=== PATIENT | female | born 1960 | race Caucasian/White ===

== ENCOUNTER 2021-07-09 23:38 | Emergency (ER) | payer OTHER, SELFPAY ==
--- NOTE | 2021-07-09 23:30 | RT.EKG_ITS ---
APPROVED REPORT Exam: Resting ECG Reason for Exam: chest pain Patient Location: E HR:75 bpm ECG Measurements Heart Rate 75 AXIS AR 151 P 60 QRSd 95 QRS 10 QT 401 T 36 QTc 447 Conclusion Sinus rhythm...normal P axis, V-rate 60- 99 Nonspecific T abnormalities, inferior leads...T <-0.10mV, II III aVF Normal [place] I have reviewed and interpreted ECG and agree with software generated interpretation.
[2021-07-09 23:43] VITALS: BP 111/75; PULSE 73; RESP 18; TEMP 36.4; O2SAT 97
--- NOTE | 2021-07-10 | DI.RAD_ITS ---
Exam(s) XR CHEST 2V PA LATERAL EXAM: XR CHEST 2V PA LATERAL CLINICAL HISTORY: chest pain. TECHNIQUE: 2D digital imaging was performed. COMPARISON: No exams were available for comparison FINDINGS: Heart size is normal. The mediastinum is not widened. Lungs are clear. No infiltrates nor pleural effusions. IMPRESSION: No acute pulmonary findings. DATA REPOSITORY: RADIATION DOSE DELIVERED:
--- NOTE | 2021-07-10 00:10 | ED.GENADUL_ITS ---
Discharge Plan Disposition Patient Disposition: HOME Condition: Good Discharge Details Clinical Impression: Chest pain [facility] Provider: John Lan Home Meds and New Rx's Prescriptions: No Action No Known Home Meds RF: 0 Discharge Instructions Instructions: Chest Pain (ED) Additional Instructions: Please contact your primary care physician for follow-up and consideration of outpatient stress testing to complete tonight's work-up. No EKG shows nonspecific changes with normal labs and normal chest x-ray. Return to ED for new or worsening pain, persistent shortness of breath, syncope, other concerns. Discharge Data Discharge Date/Time-TO BE ENTERED AT DEPARTURE: 07/10/21 03:35 Medical Decision Making Patient presenting to the ED with episode of chest pain that she described as sharp and brief maybe a couple of minutes. She is anxious and concerned because recently saw primary care physician who had an event monitor placed based on EKG findings on her annual visit. She also has a sister of a heart attack at about the age patient is currently. Her EKG is sinus rhythm with nonspecific ST changes but nothing acute.. No old to compare to. She is asymptomatic now. She has no risk factors other than family history. She is otherwise healthy and not on medications. IV established and laboratory studies sent including D- dimer. Chest x-ray obtained. Laboratory studies are unremarkable. D-dimer is negative. First troponin is negative. Chest x-ray with no acute pathology. Patient without recurrent symptoms. Repeat EKG and troponin at 3 hours remain unchanged. Patient is low risk by HEART score as well as EDACS. Discussed with patient at length and referred to primary care for follow-up and consideration of outpatient stress testing to complete ED work-up. Return to ED for recurrent symptoms or concerns. Lab Data Lab results reviewed: Yes I reviewed the patient's lab results. ECG Data Attestation: I personally reviewed and interpreted this ECG (s) as follows: Prior ECG tracings: not available for review Interpretation: see EKG HPI General Mode of arrival: ambulatory . Date/Time Provider Initiated Documentation: 07/10/21 00:10 . Limitations to Documentation: no limitations . Information obtained by: patient and RN notes reviewed . HPI Narrative: Patient presents to ED with complaint of chest pain. Patient seen by primary care last week for her annual physical. She was told that her EKG had some abnormalities that they wanted to investigate. An event monitor has been placed. This evening she developed chest pain described as sharp and radiating toward the back. Was relatively brief only a few minutes but scatter as she reports having a sister from a heart attack at about her age. Patient had some shortness of breath but cannot decide whether it was related to anxiety or not. She had no syncope, dizziness, diaphoresis, nausea or vomiting. She did take a baby aspirin and then came to the ED. She is currently asymptomatic. Related Data Home Medications Medication Instructions Recorded Confirmed Unknown [No Known Home Meds] 07/10/21 07/10/21 Allergies Allergy/AdvReac Type Severity Reaction Status Date / Time No Known Allergies Allergy Unverified 07/10/21 01:21 General Stated Complaint: Chest Pain LOS: 2 Review of Systems Narrative: As documented in HPI otherwise negative as below. Const: no fever, chills, weakness Resp: no cough, pleuritic pain CV: no diaphoresis, edema, syncope GI: no abdominal pain, nausea, vomiting, diarrhea Neuro: no headache, numbness, focal weakness, confusion PFSH All Active Problems (Updated 07/10/21 @ 03:15 by John Lan MD) Chest pain (Acute) Medical History (Updated 07/10/21 @ 03:15 by John Lan MD) No significant past medical history Social History (Updated 07/10/21 @ 00:11 by John Lan MD) Smoking/Tobacco Use Status: Never Smoking risk assessment performed?: Yes Substance use type: does not use Do you feel safe at home: Yes Do you feel safe in your relationship?: Yes Exam Narrative Exam Narrative: Const: WDWN female in NAD. HEENT: NC/AT. Normal facial exam. Eyes: Normal conjunctiva and sclera. Neck: Supple. Trachea midline. Lungs: Normal respiratory effort. Lungs are clear. Cor: RRR without murmur/gallop. Good radial pulses. GI: Soft. NT/ND. No guarding or rebound. Neuro: A+O x 3. Normal speech, mentation, gait. Cranial nerves II - XII grossly intact. No gross motor or sensory deficit. Ext: No C/C/E. Skin: Warm and dry without rash. Course Vital Signs Vital signs: Vital Signs Temperature 97.5 F L 07/09/21 23:43 Pulse 73 07/09/21 23:43 Respiratory Rate 18 07/09/21 23:43 Blood Pressure 111/75 07/09/21 23:43 Pulse Oximetry 97 07/09/21 23:43 Temperature 97.5 F L 07/09/21 23:43 Temperature Source Tympanic 07/09/21 23:43 Pulse 73 07/09/21 23:43 Respiratory Rate 18 07/09/21 23:43 Blood Pressure 111/75 07/09/21 23:43 Blood Pressure Position Supine 07/09/21 23:43 Pulse Oximetry 97 07/09/21 23:43 Oxygen Delivery Method Room Air 07/09/21 23:43 Oxygen Flow Rate 0 07/09/21 23:43 Pain Level 0 07/09/21 23:43
[2021-07-10 00:23] LABS: Abs Immature Grans 0.01 10^3/uL (0.0-0.06); Absolute Basophil Count 0.04 10^3/uL (0.0-0.2); Absolute Lymphocyte Count 1.56 10^3/uL (1.2-3.4); Absolute Monocyte Count 0.53 10^3/uL (0.1-0.8); Absolute Neutrophil Count 3.36 10^3/uL (1.2-6.7); Basophils % 0.7; Eosinophils % 1.8; HCT 34.9 % (36.0-46.0); HGB 11.7 g/dL (11.2-15.7); Immature Grans % 0.2; Lymphocytes % 27.9; MCH 29.9 pg (27.0-33.0); MCHC 33.5 % (32.0-36.0); MCV 89.3 fL (80-95); MPV 10.1 fL (8.0-11.0); Monocytes % 9.5; Neutrophils % 59.9; Nucleated RBC 0 %; Platelet Count 210 10^3/uL (130-400); RBC 3.91 10^6/uL (3.93-5.22); RDW 12.3 % (11.7-14.6); RDW-SD 39.7 fL
[2021-07-10 00:36] LABS: ALT 16 U/L (14-59); AST 11 U/L (15-37); Albumin 3.7 g/dL (3.4-5.0); Alkaline Phosphatase 70 U/L (46-116); Anion Gap 7.9 mmol/L (3-11); BUN 20 mg/dL (7-18); Bilirubin, Total 0.3 mg/dL (0.2-1.0); CO2 28.1 mmol/L (21.0-32.0); Calcium 8.6 mg/dL (8.5-10.1); Chloride 107 mmol/L (98-107); Estimated GFR 56.75 (mL/min/1.73m2); Glucose 127 mg/dL (74-106); Magnesium 2.2 mg/dL (1.8-2.4); Potassium 3.5 mmol/L (3.5-5.1); Sodium 143 mmol/L (136-145); Total Protein 6.8 g/dL (6.4-8.2)
[2021-07-10 00:37] LABS: Troponin I < 0.05 ng/mL (<0.06)
[2021-07-10 01:09] LABS: D-Dimer 224 ng/mlFEU (<500)
[2021-07-10] MEDS: Aspirin 81 MG CHEW 243 MG CH (01:58)
--- NOTE | 2021-07-10 02:04 | DI.VRAD_ITS ---
PROCEDURE INFORMATION: Exam: XR Chest Exam date and time: 07/10/2021 12:13 AM Age: 61 years old Clinical indication: Other: Cp TECHNIQUE: Imaging protocol: XR of the chest. Views: 2 views. COMPARISON: No relevant prior studies available. FINDINGS: Lungs: Unremarkable. No consolidation. Pleural spaces: Unremarkable. No pleural effusion. No pneumothorax. Heart/Mediastinum: Unremarkable. No cardiomegaly. Bones/joints: Unremarkable. IMPRESSION: No acute findings. Dictated and Authenticated by: Noel Jane MD. Ordering:KAROL Lopez MD
--- NOTE | 2021-07-10 02:30 | RT.EKG_ITS ---
APPROVED REPORT Exam: Resting ECG Reason for Exam: repeat Patient Location: E HR:57 bpm ECG Measurements Heart Rate 57 AXIS MS 150 P 52 QRSd 103 QRS 37 QT 451 T 30 QTc 439 Conclusion Sinus bradycardia...rate< 60 Low voltage, precordial leads...precordial leads <1.0mV Nonspecific T abnormalities, anterior leads...T <-0.10mV, V2-V4 There are no significant changes compared to prior EKG performed on 07/09/2021 at 23:48.
[2021-07-10 02:49] VITALS: BP 118/74; PULSE 60; RESP 18; O2SAT 97
[2021-07-10 03:10] LABS: Troponin I < 0.05 ng/mL (<0.06)
== END 2021-07-10 03:35 | disposition home or self-care (01) ==
PROVIDERS: Emergency Provider Emergency Medicine
DX: R07.9 Chest pain, unspecified (principal)
CPT/HCPCS: 80053; 93005; 99284; 71046; 83735; 84484; 85025; 85379; 93010; 99283

== ENCOUNTER 2021-09-28 08:30 | Emergency (ER) | payer OTHER, SELFPAY ==
[2021-09-28] VITALS (42 sets, daily range): BP systolic 95–138; BP diastolic 48–104; PULSE 56–81; RESP 11–22; TEMP 36.2–36.4; O2SAT 95–99
--- NOTE | 2021-09-28 08:30 | RT.EKG_ITS ---
APPROVED REPORT Exam: Resting ECG Reason for Exam: cp/sob Patient Location: E HR:81 bpm ECG Measurements Heart Rate 81 AXIS NM 148 P 49 QRSd 91 QRS -6 QT 392 T 7 QTc 454 Conclusion Sinus rhythm...normal P axis, V-rate 60- 99 Low voltage, precordial leads...precordial leads <1.0mV Nonspecific T abnrm, anterolateral leads...T <-0.10mV, I aVL V2-V6. Sinus. Artifact V5-6. No STEMI. I have reviewed and interpreted ECG and agree with software generated interpretation.
--- OUTSIDE RECORDS SUMMARY | 2021-09-28 08:35 | XMS_ITS ---
:1960 Author Organization [facility] Address [address] [place], [place] [id number] Care Team Providers Name Role Phone JAVIER JIMENEZ Unavailable Unavailable PROBLEMS Unknown Problems ALLERGIES No Information ENCOUNTERS Encounter Location Date Diagnosis [facility] [address] Jul, Other melanin [facility] [place], [place] [id number] hyper pigmentation L81.4 ; Associates Melanocytic nevi of trunk D22.5 ; Other se borrheic keratosis L82.1 and Inflamed seborrheic kerat osis L82.0 IMMUNIZATIONS No Known Immunizations SOCIAL HISTORY Never Assessed REASON FOR REFERRAL FUNCTIONAL STATUS PLAN OF CARE VITAL SIGNS MEDICATIONS Unknown Medications PROCEDURES No Known procedures RESULTS No Results REASON FOR VISIT screening for malignant neoplasm of skin Insurance Providers [facility] Member Patient Patient Patient Patient Patient Subscriber Subscriber Subscriber Group Insurance Plan Plan Plan Plan ID Relationship Address Phone Name Date of ID Name Date of No Type Insurance Insurance Insurance Coverage to Subscriber Address Phone Name Dates [facility] [phone] [facility] H[facility] self Jose A [id number] [place] [id number]
--- OUTSIDE RECORDS SUMMARY | 2021-09-28 08:35 | XMS_ITS ---
:1960 Author Care Team Providers Name Role Phone Rocio Rosales Primary Care Provider Unavailable Allergies Code Code System Name Reaction Severity Status Onset No Allergy ? ? Active 8 Information Available Medications Name Status Start Date Stop Date ? ? amoxicillin 500 mg capsule Completed ? 06/28 amoxicillin 500 mg tablet Completed ? 2020 TAKE 4 TABLETS ONE HOUR PRIOR TO APPOINTMENT indomethacin 50 mg capsule Completed ? 05/13 Problems Name Status Onset Date Source ? Back Pain without Radiation NOS Active 05/17/1998 History Migraine Active 12/14/1998 History Allergic Disposition Active 12/14/1998 History Herpes Zoster Active 08/20/2017 History Procedures Date Name Performed by ? 05/13/2020 MAMMO, Screening, Digital, Bilateral [facility] (Imaging Scheduling) [address] [place] [address] [phone] (Work Place) 05/12/2019 Mammogram, Screening Information not ofelia ilable 06/28/2021 MAMMO, Screening, Digital, Bilateral 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 08/02/2021 CBC W/ Normal White 4.3 3.8-10.8 Final Ques t Auto Blood thousand/uL thousand/uL Diagnostics- Diff Cell [facility] h Count Lab: [address] [facility] [employer] ? ? Normal Red 4.44 3.80-5.10 Final [facility] Blood million/uL million/uL Di agnostics- Cell [facility] h Count Lab: [address] [facility] [employer] ? ? Normal Hemoglob 13.5 g/dL 11.7-15.5 Final Q uest in g/dL [facility] [address] [facility] ? ? Normal Hematocr 39.8 % 35.0-45.0 % Final Qu est it Diagnostic s- [facility] h Lab: [address] [facility] [employer] ? ? Normal Mcv 89.6 fL 80.0-100.0 Final [facility]L [facility] [address] [facility] [employer] ? ? Normal Mch 30.4 pg 27.0-33.[address] [facility] [address] [facility] ? ? Normal Mchc 33.9 g/dL 32.0-36.0 Final Ques t g/dL Diagnostic s- [facility] h Lab: [address] [facility] ? ? Normal Rdw 12.7 % 11.0-15.0 % [facility] [address] [facility] ? ? Normal Platelet 241 140-400 Final [facility] Count thousand/uL thousand/uL [facility]- [facility] Lab: [address] [facility] ? ? Normal Mpv 10.7 fL 7.5-12.5 fL Final Ques t Diagnostic [facility]- [facility] [address] [facility] ? ? Normal Absolute 2425 [phone] Final Ques t Neutrophi cells/uL cells/uL Kanika gnostics- [facility]: [address] [facility] ? ? Normal Absolute [phone] Final [facility] Lymphocyt cells/uL cells/uL Kanika gnostics- es [facility] Lab: [address] [facility] [employer] ? ? Normal Absolute 486 cells/uL 200-950 Final [facility] Monocytes cells/uL Diagn [facility]- [facility] Lab: [address] [facility] [employer] ? ? Normal Absolute 60 cells/uL 15-500 Final Qu est Eosinophi cells/uL Diagn [facility]- [facility] h Lab: [address] [facility] [employer] ? ? Normal Absolute 39 cells/uL 0-200 Final Qu est Basophils cells/uL Diagn [facility] Lab: [address] [facility] [employer] ? ? Normal Neutroph 56.4 % ? Final [facility] ils Diagnostic s- [facility] Lab: [address] [facility] ? ? Normal Lymphocy 30.0 % ? Final [facility] obie Diagnostic s- [facility] h Lab: [address] [facility] ? ? Normal Monocyte 11.3 % ? Final [facility] s Diagnostic s- [facility] Lab: [address] [facility] ? ? Normal Eosinoph 1.4 % ? Final [facility] ils Diagnostic s- [facility] Lab: [address] [facility] ? ? Normal Basophil 0.9 % ? Final [facility] Lab: [address] [facility] [employer] 08/02/2021 Rf Normal Rheumato <14 IU/mL <14 IU/mL Lori l [facility] (Rheumat id Factor Diagn [facility]- oid [facility] Factor), Lab: [address] Serum [facility] [employer] 08/02/2021 Sjogren Normal Sjogren' <1.0 neg ai <1.0 neg ai Final [facility] Antibody s Diagnost ics- Panel, Antibody [facility] Serum (ss-A) Lab: [address] [facility] ? ? Normal Sjogren' <1.0 neg ai <1.0 neg ai Lori l [facility] s Diagnostic s- Antibody [facility] (ss-B) Lab: [address] [facility] 08/02/2021 Ccp Normal Cyclic <16 units ? Final Qu est (Cyclic Citrullin Diagno stics- Citrulli ated [facility] nated Peptide Lab: 200 Peptide) (Ccp) Ab [facility], Igg, (IgG) [facility] Serum 08/02/2021 GEO Normal anachoic negative negative Final [facility] (Antinuc e(R) Diagnost ics- lear Screen [facility] Antibodi Lab: 200 es) [facility], Screen, [facility] Serum 07/27/2021 Lymphoma ? %Cd3+Cd4 55.6 % ? Final Q uest Panel, + Diagnostic s- Flow [facility] Cytometr Lab: [address] y, [place] [address], Unspecif [facility] ied Specimen ? ? ? %Cd3+Cd8 23.1 % ? Final [facility] + Diagnostic s- [facility] Lab: [address] [facility] ? ? ? %Cd3-Cd7 8.3 % ? Final [facility] + Diagnostic s- [facility] Lab: [address] [facility] ? ? ? %Cd19+Cd 13.8 % ? Final [facility] 20+ Diagnostic s- [facility] Lab: [address] [facility] ? ? ? Patholog see comments ? Final Q uest ist Diagnostic s- Interpret [facility] ou ation Lab: [address] [facility] ? ? ? Asr see comments ? Final Ques t Diagnostic s- [facility] Lab: [address] [facility] ? ? ? Flow see comments ? Final Ques t Cytometry Diagnos tics- Markers [facility] Lab: [address] [facility] ? ? ? Number 18 ? Final [facility] of Diagnostic s- Billable [facility] Markers Lab: [address] [facility] ? ? ? Clinical NG ? Final Quest History Diagnosti cs- [facility] Lab: [address] [facility] ? ? ? Specimen venous, ? Final [facility] Source: peripheral Diagn ostics- [facility] Lab: [address] [facility] ? ? ? Specimen blood ? Final Quest Type: Diagnostic s- [facility] Lab: [address] [facility] ? ? ? Correcti n/a ? Final [facility] on Diagnostic s- History [facility] Lab: [address] [facility] 07/27/2021 Retic Normal Reticulo 1.2 % ? Final Que st Count, cyte Diagnostic s- Blood Count, [facility] Automated Lab: 20 0 [facility] ? ? Normal Reticulo [phone] Final Qu est cyte, cells/uL cells/uL Diagno stics- Absolute [facility] Lab: [address] [facility] 07/27/2021 Erythroc Normal Sed Rate 2 mm/h < or = 30 Final [facility] yte by mm/h Diagnostic s- Sediment Modified [facility] Lab: 20 0 Rate by n [facility] en Method 07/27/2021 Patholog ? Patholog ? ? Final Q uest y ist Diagnostic s- Review, Review of [place] rough Smear Periphera Lab: 20 0 l Smear [facility] 07/27/2021 CBC W/ ? White ? ? Incomplet Que st Auto Blood e Diagnostic [facility]- [facility]: [address] [facility] ? ? ? Red ? ? Incomplet [facility] Blood e Diagnostic s- Cell [facility] Lab: [address] [facility] ? ? ? Hemoglob ? ? Incomplet Ques t in e Diagnostic s- [place] Lab: [address] [facility] ? ? ? Hematocr ? ? Incomplet Ques t it e Diagnostic s- [place] Lab: [address] [facility] ? ? ? Mcv ? ? Incomplet [facility] e Diagnostic s- [place] Lab: [address] [facility] ? ? ? Mch ? ? Incomplet [facility] e Diagnostic s- [place] Lab: [address] [facility] ? ? ? Mchc ? ? Incomplet [facility] e Diagnostic s- [place] Lab: [address] [facility] ? ? ? Rdw ? ? Incomplet [facility] e Diagnostic s- [place] Lab: [address] [facility] ? ? ? Platelet ? ? Incomplet Ques t Count e [facility]- [facility] Lab[facility] [address] [facility] ? ? ? Mpv ? ? Incomplet [facility] e Diagnostic [facility]- [facility] Lab[facility] [address] [facility] ? ? ? Absolute ? ? Incomplet Ques t Neutrophi e Diagnos tics- ls [facility] h Lab: [address] [facility] ? ? ? Absolute ? ? Incomplet Ques t Band e Diagnostic s- Neutrophi [place] [facility] Lab: [address] [facility] ? ? ? Absolute ? ? Incomplet Ques t Metamyelo e Diagnos tics- cytes [facility] h Lab: [address] [facility] ? ? ? Absolute ? ? Incomplet Ques t Myelocyte e Diagnos tics- s [facility] Lab: [address] [facility] ? ? ? Absolute ? ? Incomplet Ques t Promyeloc e Diagnos tics- ytes [facility] Lab: [address] [facility] ? ? ? Absolute ? ? Incomplet Ques t Lymphocyt e Diagnos tics- es [facility] h Lab: [address] [facility] ? ? ? Absolute ? ? Incomplet Ques t Monocytes e Diagnos tics- [facility] h Lab: [address] [facility] ? ? ? Absolute ? ? Incomplet Ques t Eosinophi e Diagnos tics- ls [facility] h Lab: [address] [facility] ? ? ? Absolute ? ? Incomplet Ques t Basophils e Diagnos tics- [facility] h Lab: [address] [facility] ? ? ? Absolute ? ? Incomplet Ques t Blasts e Diagnostic s- [facility] h Lab: [address] [facility] ? ? ? Absolute ? ? Incomplet Ques t Nucleated e Diagnos tics- RBC [facility] h Lab: [address] [facility] ? ? ? Neutroph ? ? Incomplet Ques t ils e Diagnostic s- [facility] h Lab: [address] [facility] ? ? ? Band ? ? Incomplet Quest Neutrophi e Diagnos tics- ls [facility] h Lab: [address] [facility] ? ? ? Metamyel ? ? Incomplet Ques t ocytes e Diagnostic s- [facility] Lab[facility] [address] [facility] ? ? ? Myelocyt ? ? Incomplet Ques t es e Diagnostic s- [facility] h Lab: [address] [facility] ? ? ? Promyelo ? ? Incomplet Ques t cytes e Diagnostic s- [facility] h Lab: [address] [facility] ? ? ? Lymphocy ? ? Incomplet Ques t obie e Diagnostic s- [facility] h Lab: [address] [facility] ? ? ? Reactive ? ? Incomplet Ques t Lymphocyt e Diagnos tics- es [facility] Lab: [address] [facility] ? ? ? Monocyte ? ? Incomplet Ques t s e Diagnostic s- [facility] Lab: [address] [facility] ? ? ? Eosinoph ? ? Incomplet Ques t ils e Diagnostic s- [facility] Lab: [address] [facility] ? ? ? Basophil ? ? Incomplet Ques t s e Diagnostic s- [facility] Lab: [address] [facility] ? ? ? Blasts ? ? Incomplet Quest e Diagnostic s- [facility] Lab: [address] [facility] ? ? ? Nucleate ? ? Incomplet Ques t d RBC e Diagnostic s- [facility] Lab: [address] [facility] ? ? ? Comment( ? ? Incomplet Ques t s) e Diagnostic s- [facility] Lab: [address] [facility] 07/27/2021 GEO ABNORMAL GEO positive negative Final [facility] (Antinuc Screen, Diagnos tics- lear Ifa [facility] Antibodi Lab: 200 es) [place] , [facility] Ifa, Serum ? ? High GEO 1:320 titer ? Final [facility] Titer Diagnostic s- [facility] Lab: [address] [facility] ? ? ABNORMAL GEO nuclear, ? Final Quest Pattern dense fine Diagn ostics- speckled [facility] Lab: [address] [facility] [employer] 07/27/2021 C-reacti Normal C-reacti 1.8 mg/L <8.0 mg/L Fin al Quest ve ve Diagnostic s- Protein, Protein [facility] Lab: 200 tive [facility] [employer] [facility] [employer] 07/27/2021 Ramu- Normal Ebv <36.00 U/mL ? Final Quest moore Viral Diagnostic s- Virus Capsid Ag [facility] (Ebv) (Vca) Ab Lab: 200 IgG + (IgM) [facility], IgM [facility] Panel, Serum ? ? High Ebv >750.00 U/mL ? Final Ques t Viral Diagnostic s- Capsid Ag [facility] (Vca) Ab Lab: 200 (IgG) [facility] [employer] [facility] [employer] ? ? High Ebv 375.00 U/mL ? Final [facility] Nuclear Diagnosti cs- Ag (Ebna) [facility] Ab (IgG) Lab: [address] [facility] ? ? ? Interpre ? ? Final Quest tation: Diagnosti cs- [facility] Lab: [address] [facility] [employer] 07/27/2021 Vitamin Normal Vitamin 415 pg/mL 200-1100 Final Quest B12 + B12 pg/mL Diagnostic s- Folate, [facility] Serum or Lab: 200 Blood [facility] ? ? Normal Folate, 8.0 NG/mL ? Final [facility] Serum [facility] Lab: [address] [facility] [employer] 07/27/2021 CBC W/ Normal White 4.0 3.8-10.8 Final Ques t Auto Blood thousand/uL thousand/uL Diagnostics- Diff Cell [facility] Count Lab: [address] [facility] ? ? Normal Red 4.39 3.80-5.10 Final [facility] Blood million/uL million/uL Di agnostics- Cell [facility] Count Lab: [address] [facility] ? ? Normal Hemoglob 13.0 g/dL 11.7-15.5 Final Q uest in g/dL [facility] Lab[facility] [address] [facility] ? ? Normal Hematocr 39.0 % 35.0-45.0 % Final Qu est it Diagnostic s- [facility] Lab: [address] [facility] ? ? Normal Mcv 88.8 fL 80.0-100.0 Final [facility] fL Diagnostic [facility] h Lab: [address] [facility] [employer] ? ? Normal Mch 29.6 pg 27.0-33.[address] Diagnostic [facility] h Lab: [address] [facility] ? ? Normal Mchc 33.3 g/dL 32.0-36.0 Final Ques t g/dL Diagnostic [facility] h Lab: [address] [facility] ? ? Normal Rdw 13.1 % 11.0-15.0 % Final [facility] Diagnostic [facility] Lab: [address] [facility] [employer] ? ? Normal Platelet 255 140-400 Final [facility] Count thousand/uL thousand/uL [facility] Lab: [address] [facility] ? ? Normal Mpv 10.7 fL 7.5-12.5 fL Final Ques t Diagnostic [facility] Lab: [address] [facility] ? ? ? Comment( ? ? Final Quest s) Diagnostic [facility] Lab: [address] [facility] ? ? Normal Absolute 1804 [phone] Final Ques t Neutrophi cells/uL cells/uL Kanika [facility] Lab: [address] [facility] [employer] ? ? Normal Absolute [phone] Final [facility] Lymphocyt cells/uL cells/uL [facility] Lab: [address] [facility] ? ? Normal Absolute 548 cells/uL 200-950 Final [facility] Monocytes cells/uL Diagn [facility] Lab: [address] [facility] [employer] ? ? Low Absolute 0 cells/uL 15-[address] Eosinophi cells/uL Diagn [facility] h Lab: [address] [facility] [employer] ? ? Normal Absolute 0 cells/uL 0-[address] Basophils cells/uL Diagn [facility] h Lab: [address] [facility] [employer] ? ? Normal Neutroph 45.1 % ? Final [facility] ils Diagnostic s- [facility] Lab: [address] [facility] ? ? Normal Lymphocy 41.2 % ? Final [facility] obie Diagnostic s- [facility] Lab: [address] [facility] ? ? Normal Monocyte 13.7 % ? Final [facility] s Diagnostic [facility]- [facility] Lab: [address] [facility] ? ? Normal Eosinoph 0 % ? Final Quest ils Diagnostic s- [facility] Lab: [address] [facility] ? ? Normal Basophil 0 % ? Final [facility] s Diagnostic s- [facility] Lab: [address] [facility] ? ? Normal Platelet adequate adequate Final [facility] Estimatio Diagnos tics- n [facility] h Lab: [address] [facility] [employer] ? ? ? Note ? ? Final [facility] Diagnostic s- [facility] h Lab: [address] [facility] [employer] 07/06/2021 Lipid High Choleste 227 mg/dL <200 mg/dL Fin al [facility] Panel, rol, Diagnostic s- Serum Total [facility] Lab: [address] [facility] [employer] ? ? Normal HDL 58 mg/dL > or = 50 Final Quest Cholester mg/dL Diagnos [facility] h Lab: [address] [facility] [employer] ? ? Normal Triglyce 120 mg/dL <150 mg/dL Final Quest rides Diagnostic s- [facility] h Lab: [address] [facility] [employer] ? ? High LDL-chol 145 mg/dL ? Final Ques t esterol (calc) Diagnosti [facility] h Lab: [address] [facility] [employer] ? ? Normal Chol/hdl 3.9 (calc) <5.0 (calc) Final Quest c Ratio Diagnosti [facility] Lab: [address] [facility] [employer] ? ? High Non HDL 169 mg/dL <130 mg/dL Final Q uest Cholester (calc) (calc) [facility]os [facility] Lab: [address] [facility] [employer] 07/06/2021 CMP, Normal Glucose 87 mg/dL 65-99 mg/dL Lori l [facility] Serum or Diagnost ics- Plasma [facility] Lab: [address] [facility] ? ? Normal Urea 17 mg/dL 7-25 mg/dL Final Ques t Nitrogen Diagnost ics- (BUN) [facility] Lab: [address] [facility] ? ? Normal Creatini 0.89 mg/dL 0.50-1.05 Final [facility] ne mg/dL Diagnostic [facility] Lab: [address] [facility] ? ? Normal eGFR 71 > or = 60 Final Quest Non-afr. mL/min/1.73m mL/min/1.73m Diagnostics- [place] [address] [place] [address] Lab: [address] [facility] ? ? Normal eGFR 82 > or = 60 Final [facility] mL/min/1.73m mL/min/1.73m [address] Lab: [address] [facility] ? ? ? BUN/crea not 6-22 (calc) Final Qu est tinine applicable Diagno stics- Ratio (calc) [facility] Lab: [address] [facility] ? ? Normal Sodium 140 mmol/L 135-146 Final Ques t mmol/L Diagnostic [facility] Lab: [address] [facility] ? ? Normal Potassiu 4.1 mmol/L 3.5-5.3 Final Qu est m mmol/L Diagnostic [facility] Lab: [address] [facility] ? ? Normal Chloride 106 mmol/L 98-[address] mmol/L Diagnostic [facility] Lab: [address] [facility] ? ? Normal Carbon 29 mmol/L 20-32 mmol/L Final Quest Dioxide Diagnosti [facility] Lab: [address] [facility] [employer] ? ? Normal Calcium 9.3 mg/dL 8.6-10.[address] mg/dL Diagnostic [facility] Lab: [address] [facility] ? ? Normal Protein, 6.7 g/dL 6.1-8.1 g/dL Final Quest Total Diagnostic s- [facility] h Lab: [address] [facility] ? ? Normal Albumin 4.2 g/dL 3.6-5.1 g/dL Final [facility] Diagnostic s- [facility] h Lab: [address] [facility] ? ? Normal Globulin 2.5 g/dL 1.9-3.7 g/dL Final [facility] (calc) (calc) Diagnostic s- [facility] h Lab: [address] [facility] ? ? Normal Albumin/ 1.7 (calc) 1.0-2.5 Final Qu est globulin (calc) Diagnost ics- Ratio [facility] h Lab: [address] [facility] ? ? Normal Bilirubi 0.6 mg/dL 0.2-1.[address] n, Total mg/dL Diagnost ics- [facility] h Lab: [address] [facility] ? ? Normal Alkaline 60 U/L 37-153 U/L Final Que st Phosphata Diagnos tics- se [facility] Lab: [address] [facility] ? ? Normal Ast 13 U/L 10-35 U/L Final [facility] Lab: [address] [facility] [employer] ? ? Normal Alt 10 U/L 6-29 U/L Final [facility] Lab: [address] [facility] [employer] 07/06/2021 CBC W/ Low White 3.7 3.8-10.8 Final Ques t Auto Blood thousand/uL thousand/uL Diagnostics- Diff Cell [facility] Count Lab: [address] [facility] ? ? Normal Red 4.20 3.80-5.10 Final [facility] Blood million/uL million/uL Di agnostics- Cell [facility] Count Lab: [address] [facility] ? ? Normal Hemoglob 12.6 g/dL 11.7-15.5 Final Q uest in g/dL [facility] Lab: [address] [facility] ? ? Normal Hematocr 36.8 % 35.0-45.0 % Final Qu est it Diagnostic [facility] h Lab: [address] [facility] ? ? Normal Mcv 87.6 fL 80.0-100.0 Final [facility] fL [facility] Lab: [address] [facility] ? ? Normal Mch 30.0 pg 27.0-33.[address] [facility] Lab: [address] [facility] ? ? Normal Mchc 34.2 g/dL 32.0-36.0 Final Ques t g/dL Diagnostic [facility] h Lab: [address] [facility] [employer] ? ? Normal Rdw 12.7 % 11.0-15.0 % Final [facility] Diagnostic [facility] h Lab: [address] [facility] ? ? Normal Platelet 239 140-400 Final [facility] Count thousand/uL thousand/uL [facility] Lab: [address] [facility] ? ? Normal Mpv 10.6 fL 7.5-12.5 fL Final Ques t Diagnostic [facility] Lab: [address] [facility] ? ? Normal Absolute 2042 [phone] Final Ques t Neutrophi cells/uL cells/uL Kanika [facility] Lab: [address] [facility] ? ? Normal Absolute [phone] Final [facility] Lymphocyt cells/uL cells/uL [facility] Lab: [address] [facility] [employer] ? ? Normal Absolute 370 cells/uL 200-950 Final Quest Monocytes cells/uL Diagn [facility] Lab: [address] [facility] [employer] ? ? Normal Absolute 59 cells/uL 15-500 Final Qu est Eosinophi cells/uL Diagn [facility] h Lab: [address] [facility] [employer] ? ? Normal Absolute 30 cells/uL 0-200 Final Qu est Basophils cells/uL Diagn [facility] Lab: [address] [facility] ? ? Normal Neutroph 55.2 % ? Final Quest ils Diagnostic [facility] Lab: [address] [facility] ? ? Normal Lymphocy 32.4 % ? Final Quest obie Diagnostic s- [facility] h Lab: [address] [facility] ? ? Normal Monocyte 10.0 % ? Final [facility] s [facility] Lab: [address] [facility] ? ? Normal Eosinoph 1.6 % ? Final [facility] ils [facility] Lab: [address] [facility] ? ? Normal Basophil 0.8 % ? Final [facility] s [facility] Lab: [address] [facility] 07/06/2021 TSH, Normal Tsh 2.07 mIU/L 0.40-4.50 Final [facility] Serum or mIU/L Diagnost ics- Plasma [facility] Lab: [address] [facility] [employer] 08/22/2020 CBC W/ Normal White 4.5 3.8-10.8 Final Ques t Auto Blood thousand/uL thousand/uL Diagnostics- Diff Cell [facility] Count Lab: [address] [facility] ? ? Normal Red 4.40 3.80-5.10 Final [facility] Blood million/uL million/uL Di agnostics- Cell [facility] Count Lab: [address] [facility] ? ? Normal Hemoglob 13.0 g/dL 11.7-15.5 Final Q uest in g/dL [facility] Lab: [address] [facility] ? ? Normal Hematocr 39.6 % 35.0-45.0 % Final Qu est it [facility] Lab: [address] [facility] ? ? Normal Mcv 90.0 fL 80.0-100.0 Final [facility] fL [facility] Lab: [address] [facility] ? ? Normal Mch 29.5 pg 27.0-33.[address] [facility] Lab[facility] [address] [facility] ? ? Normal Mchc 32.8 g/dL 32.0-36.0 Final Ques t g/dL [facility] [address] [facility] [employer] ? ? Normal Rdw 12.9 % 11.0-15.0 % Final [facility] Lab: [address] [facility] [employer] ? ? Normal Platelet 246 140-400 Final [facility] Count thousand[facility]uL [facility] [address] [facility] [employer] [facility] [employer] ? ? Normal Mpv 10.9 fL 7.5-12.5 fL Final Ques t Diagnostic [facility] Lab: [address] [facility] [employer] ? ? Normal Absolute [id number] [phone] Final Ques t Neutrophi cells/uL cells/uL [facility] Lab: [address] [facility] [employer] ? ? Normal Absolute [phone] Final [facility] Lymphocyt cells/uL cells/uL [facility] Lab: [address] [facility] [employer] ? ? Normal Absolute 437 cells/uL 200-950 Final [facility] Monocytes cells/uL Diagn [facility] Lab: [address] [facility] [employer] ? ? Normal Absolute 50 cells/uL 15-500 Final Qu est Eosinophi cells/uL Diagn [facility] Lab: [address] [facility] [employer] ? ? Normal Absolute 32 cells/uL 0-200 Final Qu est Basophils cells/uL Diagn [facility] Lab: [address] [facility] [employer] ? ? Normal Neutroph 61.3 % ? Final [facility] ils [facility] Lab: [address] [facility] [employer] ? ? Normal Lymphocy 27.2 % ? Final [facility] obie [facility] Lab: [address] [facility] [employer] ? ? Normal Monocyte 9.7 % ? Final [facility] s [facility] Lab: [address] [facility] [employer] ? ? Normal Eosinoph 1.1 % ? Final [facility] ils [facility] Lab: [address] [facility] [employer] ? ? Normal Basophil 0.7 % ? Final [facility] Lab: [address] [facility] 08/22/2020 HbA1C Normal Hemoglob 5.1 % of <5.7 % of Final [facility] (Hemoglo in a1C total HGB total HGB Di agnostics- bin [facility] a1C), Lab: [address] [facility] [employer] 08/22/2020 TSH, Normal Tsh 1.51 mIU/L 0.40-4.50 Final [facility] Serum or mIU/L Diagnost ics- Plasma [facility] Lab: [address] [facility] 08/22/2020 Vitamin Normal Vitamin 31 NG/mL 30-100 NG/mL Fi nal [facility] D, D,25-Oh,t Diagnos tics- 25-Wilson otal,ia Martha gee xy, Lab: [facility] 07/07/2020 CBC W/ ? No ? ? ? Diff observati on recorded. 07/07/2020 Lipid ? No ? ? ? [facility] Panel, observati Hospita l (Lab Serum on Services): recorded. [address] kathleen Trivedi [place] [facility] 07/07/2020 CMP, ? No ? ? ? [facility] [place] [facility] Serum or observati Hospi mary jane (Lab Plasma on Services): recorded. [facility] [facility] Covirgilio lacey [facility] Past Encounters 06/28/2021 Adult Health Examination; Screening Mamm ography; Administration of Influenza Vaccine; Intermittent Palpitations; EKG: T Wave Abnormal; Idiopathic Peripheral Neuropathy Rocio Rosales, IMCU NURSE: [address] [place] [address], Ph. 05/13/2020 Adult Health Examination; Administration of Influenza Vaccine; Screening Mammography; Screening for Malignant Neoplasm of Skin Rocio Rosales IMCU NURSE: [address] [place] [address], Ph. 04/26/2020 Risk of Exposure to Communicable Disease Corie Levy PA: [address] [place] [address], Ph. Social History Tobacco Smoking Status Never Smoker Vaccine List Vaccine Type influenza, injectable, quadrivalent, pre servative free 05/13/2020?0.5 mL 05/13/2020?0.5 mL 06/28/2021?0.5 mL influenza, unspecified formulation 05/06/2019 tetanus toxoid, unspecified formulation 02/12/2018 Notes: HEP C AB (05/21/2019) PHYSICAL (05/06/2019) PHYSICAL (05/06/2019) Plan of Care Reminders Provider Appointments None ? ? recorded. Lab None ? ? recorded. Referral None ? ? recorded. Procedures None ? ? recorded. Surgeries None ? ? recorded. Imaging None ? ? recorded. Vitals 06/28/2021 01:00PM ANNUAL EXAM 40 Height Weight BMI Blood Pressure 5 ft 5 in 178 lbs 16 oz 29.8 kg/m2 105/70 mm[Hg] 05/13/2020 10:00AM ANNUAL EXAM 40 Height Weight BMI Blood Pressure 5 ft 5 in 181 lbs 30.1 kg/m2 112/72 mm[Hg] 07/18/2019 Height Weight Blood Pressure 5 ft 6 in 184 lbs 3.2 oz 104/78 mm[Hg] 05/06/2019 Height Weight Blood Pressure 5 ft 6 in 181 lbs 120/68 mm[Hg] 03/24/2019 Height Weight Blood Pressure 5 ft 6 in 177 lbs 115/60 mm[Hg] 02/03/2019 Height Weight Blood Pressure 5 ft 6 in 175 lbs 130/80 mm[Hg] 12/11/2017 Height Weight Blood Pressure 5 ft 6 in 165 lbs 96/68 mm[Hg] 08/21/2017 Height Weight Blood Pressure 5 ft 6 in 159 lbs 110/76 mm[Hg] 08/20/2017 Height Weight Blood Pressure 5 ft 6 in 159 lbs 110/70 mm[Hg] 08/18/2017 Height Weight Blood Pressure 5 ft 6 in 160 lbs 110/78 mm[Hg] 12/14/1998 Blood Pressure 92/60 mm[Hg] 11/03/1998 Blood Pressure 112/70 mm[Hg] 09/09/1998 Blood Pressure 102/60 mm[Hg] 05/17/1998 Height Weight Blood Pressure 5 ft 5 in 158 lbs 110/70 mm[Hg] 05/31/1997 Blood Pressure 120/68 mm[Hg]
--- NOTE | 2021-09-28 09:33 | ED.GENADUL_ITS ---
Discharge Plan Disposition Patient Disposition: HOME Condition: Improving Discharge Details Clinical Impression: Chest pain Primary Care Provider: BINH HERNANDEZ ED Provider: Terry Mckeon Home Meds and New Rx's Prescriptions: No Action No Known Home Meds 0RF Discharge Instructions Instructions: Chest Pain (ED) Additional Instructions: If you have any new or worsening symptoms feel free to return to the emergency department for reevaluation. It is very important that you keep your follow-up appointment with your instrumentation controls engineer for further investigation of your episodes of palpitations and chest pain. Today's evaluation has not shown any emergent findings but further testing may be ordered to investigate your complaint better. Discharge Data Discharge Date/Time-TO BE ENTERED AT DEPARTURE: 09/28/21 13:18 Medical Decision Making Patient presenting to the emergency department for chief complaint of chest pain. She states intermittent chest pain episodes since June that seem to be brought on by sensation of palpitations or abnormal heartbeat. Patient states these are short episodes but then sometimes lead to near syncope which she is unsure is related to her ongoing anxiety. During these episodes she has a short spell of shortness of breath but also quickly resolves. Patient denies fever chills, recent illness, recent vaccination, denies any long car trips or surgery denies any associated symptoms. Physical exam is unremarkable but with the discussion of patient there is high suspicion of possible anxiety related secondary symptoms with noting that patient does have PVCs that were noted on stress test that was otherwise nondiagnostic. Patient does have follow-up with instrumentation controls engineer already arranged for tomorrow. Plan to do full cardiac work-up including delta troponins. Please see EKG interpretation report by Dr. Fern Link but patient is in sinus rhythm, rate of 81, nonspecific ST changes but otherwise nondiagnostic EKG. 1037- Review of initial labs show nondiagnostic CBC, D-dimer within normal range, CMP normal, initial troponin is negative. Chest x-ray shows no acute findings. We will plan on doing delta troponin and repeat EKG at 3-hour rakesh. Patient continues to be asymptomatic at reassessment. 1253-patient reassessed and continues to be asymptomatic with no further discomfort noted. Repeat EKG shows no acute changes from previous ones performed and delta troponin is negative. I feel this is reassuring for patient to follow-up on an outpatient basis with clear understanding to return for any new or significant worsening of condition. Patient is in agreement of plan of care after discussion. After discussion of diagnosis and plan of care patient has no further needs, questions, or concerns and states clear understanding to return to the emergency department for any worsening symptoms. Imaging Data Radiologic Study: Radiologist's impression: No acute findings Written by BERENICE DEVINE on 09/28/2021 10:29:33 HPI General Mode of arrival: ambulatory . Date/Time Provider Initiated Documentation: 09/28/21 08:36 . Limitations to Documentation: no limitations . Information obtained by: patient . History of Present Illness 61 year old F presents to the emergency department with the chief complaint of Chest pain and SOB, described as similar to prior episodes, Quality is described as other (no denies pain), and is localized to the chest. Patient reports no radiation. Patient started experiencing this minute(s) (20) and it has been constant and now resolved. improves with No relieving factors improve symptom(s), No exacerbating factors reported . Patient notes shortness of breath. Patient did receive the following treatments prior to arrival, none Related Data Home Medications Medication Instructions Recorded Confirmed Unknown [No Known Home Meds] 07/10/21 07/10/21 Allergies Allergy/AdvReac Type Severity Reaction Status Date / Time No Known Allergies Allergy Unverified 09/28/21 08:52 General Stated Complaint: Chest Pain LOS: 3 Review of Systems Constitutional Constitutional: Denies chills, Denies fever(s) and Denies malaise Cardiovascular Cardiovascular: Reports as per HPI, Reports chest pain, Denies chest pain with activity, Denies syncope, Denies pedal edema, Denies edema, Denies irregular heart rhythm, Reports lightheadedness, Reports palpitations and Reports dyspnea Respiratory Respiratory: Denies cough, Denies hemoptysis and Reports dyspnea Gastrointestinal Gastrointestinal: Denies abdominal pain, Denies nausea and Denies vomiting Neurologic Neurologic: Denies syncope Psychiatric Psychiatric: Reports anxiety Endocrine Endocrine: Denies cold intolerance, Denies heat intolerance and Reports palpitations PFSH All Active Problems (Updated 09/28/21 @ 12:52 by Terry Mckeon NP) Chest pain (Acute) Medical History No significant past medical history Social History Smoking/Tobacco Use Status: Never Smoking risk assessment performed?: Yes Alcohol Intake: current Alcohol Intake frequency: holidays/special occasions only Substance use type: does not use Do you feel safe at home: Yes Do you feel safe in your relationship?: Yes Exam Const General: cooperative, healthy appearing, comfortable, no acute distress, not diaphoretic and not ill appearing Orientation: alert, awake and oriented x3 Limitations: mental status not altered Neck Neck: normal visual inspection and full ROM Resp Effort & Inspection: normal respiratory effort and able to speak in complete sentences Auscultation: clear to auscultation bilaterally Cardio Palpation: normal PMI Rate: regular rate Rhythm: regular rhythm Heart Sounds: S1 normal, S2 normal, no click, no gallops, no murmurs and no rubs Pulses: radial pulses present bilaterally 2+ Skin General skin exam: no rashes or lesions noted, dry skin and no erythema Neuro General: patient alert, patient awake, patient oriented x3, gait normal, tone normal, moves all extremities and not confused Course Vital Signs Vital signs: Vital Signs Temperature 36.2 C L 09/28/21 08:39 Pulse 81 09/28/21 08:39 Respiratory Rate 18 09/28/21 08:39 Blood Pressure 125/80 09/28/21 08:39 Pulse Oximetry 99 09/28/21 08:39 Temperature 36.2 C L 09/28/21 08:39 Temperature Source Temporal Artery Scan 09/28/21 08:39 Pulse 81 09/28/21 08:39 Respiratory Rate 18 09/28/21 08:39 Respiratory Effort Non-Labored 09/28/21 08:52 Blood Pressure 125/80 09/28/21 08:39 Blood Pressure Position Supine 09/28/21 08:39 Pulse Oximetry 99 09/28/21 08:39 Oxygen Delivery Method Room Air 09/28/21 08:39 Oxygen Flow Rate 0 09/28/21 08:39
[2021-09-28 09:44] LABS: Abs Immature Grans 0.01 10^3/uL (0.0-0.06); Absolute Basophil Count 0.02 10^3/uL (0.0-0.2); Absolute Eosinophil Count 0.06 10^3/uL (0.0-0.7); Absolute Lymphocyte Count 1.21 10^3/uL (1.2-3.4); Absolute Monocyte Count 0.36 10^3/uL (0.1-0.8); Absolute Neutrophil Count 2.71 10^3/uL (1.2-6.7); Basophils % 0.5; Eosinophils % 1.4; HCT 38.5 % (36.0-46.0); HGB 12.6 g/dL (11.2-15.7); Immature Grans % 0.2; Lymphocytes % 27.7; MCH 29.9 pg (27.0-33.0); MCHC 32.7 % (32.0-36.0); MCV 91.4 fL (80-95); MPV 10.6 fL (8.0-11.0); Monocytes % 8.2; Nucleated RBC 0 %; Platelet Count 211 10^3/uL (130-400); RBC 4.21 10^6/uL (3.93-5.22); RDW 12.4 % (11.7-14.6); WBC 4.37 10^3/uL (4.4-10.8)
[2021-09-28 10:02] LABS: ALT 19 U/L (14-59); AST 24 U/L (15-37); Albumin 3.7 g/dL (3.4-5.0); Alkaline Phosphatase 77 U/L (46-116); Anion Gap 7.6 mmol/L (3-11); BUN 14 mg/dL (7-18); Bilirubin, Total 0.5 mg/dL (0.2-1.0); CO2 28.4 mmol/L (21.0-32.0); CREATININE 0.9 mg/dL (0.55-1.02); Chloride 107 mmol/L (98-107); Glucose 92 mg/dL (74-106); Potassium 3.6 mmol/L (3.5-5.1); Sodium 143 mmol/L (136-145); Total Protein 7.3 g/dL (6.4-8.2); Troponin I < 50 ng/L (<or=60)
--- NOTE | 2021-09-28 10:20 | DI.RAD_ITS ---
Exam(s) XR CHEST 2V PA LATERAL EXAM: XR CHEST 2V PA LATERAL CLINICAL HISTORY: chest pain TECHNIQUE: 2D digital imaging was performed. COMPARISON: CR,XR XR CHEST 2V PA LATERAL from 07/10/2021 FINDINGS: MEDIASTINUM: Normal. HEART: Normal. PULMONARY VASCULATURE: Normal. LUNGS: Clear. Azygos lobe, normal variant. PLEURAL SPACE: No pleural effusion or pneumothorax. BONE:Unremarkable for age. Soft tissues: Surgical clips right chest wall. IMPRESSION: No acute abnormality. DATA REPOSITORY: RADIATION DOSE DELIVERED:
[2021-09-28 10:37] LABS: D-Dimer 251 ng/mlFEU (<500)
[2021-09-28 12:27] LABS: Troponin I < 50 ng/L (<or=60)
--- NOTE | 2021-09-28 12:30 | RT.EKG_ITS ---
APPROVED REPORT Exam: Resting ECG Reason for Exam: chest pain Patient Location: E HR:60 bpm ECG Measurements Heart Rate 60 AXIS TN 145 P 31 QRSd 94 QRS 2 QT 429 T 1 QTc 429 Conclusion Sinus rhythm...normal P axis, V-rate 60- 99 Low voltage, precordial leads...precordial leads <1.0mV Nonspecific T abnormalities, anterior leads...T <-0.10mV, V2-V4. Sinus. T wave inversion in V2-4, seen in previous EKG. No STEMI. No change from previous EKG. I have reviewed and interpreted ECG and agree with software generated interpretation.
== END 2021-09-28 13:18 | disposition home or self-care (01) ==
PROVIDERS: Emergency Provider Nurse Practitioner Family; PCP Nurse Practitioner
DX: R07.9 Chest pain, unspecified (principal); R06.02 Shortness of breath
CPT/HCPCS: 36415; 80053; 93005; 99284; 71046; 83735; 84484; 85025; 85379; 93010; 99283